=== PATIENT | male | born 1940 | race Caucasian/White ===

== ENCOUNTER 2017-06-19 16:54 | Inpatient (IN) | payer MEDICARE ==
[~2017-06-19] VITALS: Ht 182.9 cm; Wt 76.8 kg
[2017-06-19 17:22] LABS: GLUCOSE,POINT OF CARE 74 MG/DL (70-110)
[2017-06-19] MEDS ORDERED: ESCI20TA PO (17:29)
[2017-06-19] MEDS ORDERED: ATOR10TA84 PO (17:29)
[2017-06-19] MEDS ORDERED: LEVO75 PO (17:29)
[2017-06-19] MEDS ORDERED: LISI-660 PO (17:29)
[2017-06-19 19:49] LABS: BASOPHILS % (AUTO) 0.6 % (0.0-2.0); EOSINOPHILS % (AUTO) 3.8 % (1.0-6.0); HEMATOCRIT 37.1 % (41-53); HEMOGLOBIN 12.8 g/dL (13.5-17.5); LYMPHOCYTES # (AUTO) 1.3 K/uL (1.0-4.8); LYMPHOCYTES % (AUTO) 15.8 % (22.0-44.0); MEAN CORPUSCULAR HEMOGLOBIN 30.3 pg (26.0-34.0); MEAN CORPUSCULAR HGB CONC 34.4 G/dL (31.0-37.0); MEAN CORPUSCULAR VOLUME 88 fL (80-100); MONOCYTES # (AUTO) 0.7 K/uL (0.1-1.0); MONOCYTES % (AUTO) 8.2 % (2.0-9.0); NEUTROPHILS % (AUTO) 71.6 % (40.0-70.0); PLATELET COUNT (AUTO) 340 K/uL (150-450); RED BLOOD CELL COUNT(AUTO) 4.22 MIL/uL (4.50-5.90); WHITE BLOOD COUNT (AUTO) 8.3 K/uL (4.5-11.0)
[2017-06-19 19:54] LABS: CALCIUM, TOTAL 9.4 mg/dL (8.8-10.5); CREATININE 1.4 mg/dL (0.60-1.30); POTASSIUM 4.3 mmol/L (3.5-5.1)
[2017-06-19 19:59] LABS: ALBUMIN 3.2 g/dL (3.4-5.0); BILIRUBIN,TOTAL 0.5 mg/dL (0.1-1.0); TOTAL PROTEIN, SERUM 7.5 g/dL (6.4-8.2)
[2017-06-19 20:43] LABS: LACTIC ACID 1.5 mmol/L (0.4-2.0)
[2017-06-19] MEDS ORDERED: ACETAMINOPHEN 325 MG TABLET PO PRN ×2 (21:00→21:30)
[2017-06-19] MEDS ORDERED: VANCOMYCIN HCL 1 GM/D5% WATER 200 ML IV ONE (21:00)
[2017-06-19] MEDS ORDERED: PIPERACILLIN/TAZO 3.375 GM/D5W 50 ML IV ONE (21:00)
[2017-06-19] MEDS ORDERED: ONDANSETRON HCL 4 MG/2 ML VIAL IVP PRN ×2 (21:00→21:30)
[2017-06-19] MEDS ORDERED: DEXTROSE 50%-WATER 25 GM/50 ML SYRINGE IVP PRN ×2 (21:00→21:30)
[2017-06-19] MEDS ORDERED: INSULIN REGULAR, HUMAN 100 UNITS/ML SQ PRN (21:00)
[2017-06-19] MEDS ORDERED: 0.9% SODIUM CHLORIDE 10 ML SYRINGE IVP PRN (21:00)
[2017-06-19] MEDS ORDERED: SODIUM CHLORIDE 0.9% 250 ML IV ONE (21:25)
[2017-06-19] MEDS ORDERED: ALBUTEROL SULFATE 2.5 MG/0.5 ML NEB SOLUTION NEB PRN (21:30)
[2017-06-19] MEDS ORDERED: MORPHINE SULFATE 2 MG/ML SYRINGE IVP PRN (21:30)
[2017-06-19] MEDS ORDERED: OxyCODONE HCL/ACETAMINOPHEN 5-325 MG TABLET PO PRN (21:30)
[2017-06-19] MEDS ORDERED: ZOLPIDEM TARTRATE 5 MG TABLET PO PRN (21:30)
[2017-06-19] MEDS ORDERED: MAGNESIUM HYDROXIDE SUSPENSION 30 ML UDCUP PO PRN (21:30)
[2017-06-19] MEDS ORDERED: BISACODYL 10 MG RECTAL RECTAL SUPPOSITORY PR PRN (21:30)
[2017-06-19] MEDS ORDERED: IPRATROPIUM BROMIDE 0.5 MG/2.5 ML NEB SOLUTION NEB PRN (21:30)
[2017-06-19 22:00] VITALS: BP 108/62
[2017-06-19] MEDS ORDERED: INSULIN ASPART 100 UNITS/ML SQ ONE (22:15)
[2017-06-19] MEDS: INSULIN GLARGINE,HUM.REC.ANLOG 100 UNITS/ML SQ SCH (22:51)
[2017-06-19 22:57] LABS: GLUCOSE,POINT OF CARE 141 MG/DL (70-110)
[2017-06-20] MEDS ORDERED: VANCOMYCIN HCL 500 MG in DEXTROSE 5%-WATER 100 ML IV ONE (01:00)
[2017-06-20 01:24] LABS: APPEARANCE,URINE CLEAR (CLEAR); GLUCOSE, URINE (UA) NEGATIVE (NEGATIVE); KETONES,URINE TRACE mg/dL (NEGATIVE); LEUKOCYTE ESTERASE ,URINE NEGATIVE (NEGATIVE); OCCULT BLOOD,URINE NEGATIVE (NEGATIVE); PROTEIN,URINE POS 1+ (NEGATIVE)
[2017-06-20 02:15] LABS: CALCIUM OXALATE CRYSTALS,UR Rare /LPF (None Seen); HYALINE CASTS, URINE 0-2 /LPF (None Seen); RBC,URINE 0-2 /HPF (0-2); WBC,URINE 0-2 /HPF (0-5)
[2017-06-20 04:08] VITALS: BP 99/54
[2017-06-20] MEDS: LEVOTHYROXINE SODIUM 75 MCG TABLET PO SCH (06:20)
[2017-06-20] MEDS: INSULIN ASPART 100 UNITS/ML SQ PRN ×3 (06:26→20:50)
[2017-06-20 06:36] LABS: EOSINOPHILS % (AUTO) 0.6 % (1.0-6.0); HEMATOCRIT 33.9 % (41-53); HEMOGLOBIN 11.8 g/dL (13.5-17.5); LYMPHOCYTES # (AUTO) 0.2 K/uL (1.0-4.8); LYMPHOCYTES % (AUTO) 1.8 % (22.0-44.0); MEAN CORPUSCULAR HEMOGLOBIN 30.6 pg (26.0-34.0); MEAN CORPUSCULAR HGB CONC 34.7 G/dL (31.0-37.0); MEAN CORPUSCULAR VOLUME 88 fL (80-100); MONOCYTES # (AUTO) 0.3 K/uL (0.1-1.0); MONOCYTES % (AUTO) 2.7 % (2.0-9.0); NEUTROPHILS # (AUTO) 9.3 K/uL (1.8-7.7); PLATELET COUNT (AUTO) 284 K/uL (150-450); RED BLOOD CELL COUNT(AUTO) 3.84 MIL/uL (4.50-5.90); RED CELL DISTRIBUTION WIDTH 14.2 % (11.5-14.5); WHITE BLOOD COUNT (AUTO) 9.8 K/uL (4.5-11.0)
[2017-06-20 06:44] LABS: GLUCOSE,POINT OF CARE 320 MG/DL (70-110)
[2017-06-20 06:59] LABS: NEUTROPHILS % (AUTO) 94.9 % (40.0-70.0)
[2017-06-20] MEDS ORDERED: VANCOMYCIN HCL 1 GM/D5% WATER 200 ML IV SCH (07:00)
[2017-06-20 07:28] LABS: HEMOGLOBIN A1C 7.2 % (4.5-6.2)
[2017-06-20 07:48] LABS: ALBUMIN 2.9 g/dL (3.4-5.0); CREATININE 1.63 mg/dL (0.60-1.30); MAGNESIUM 1.9 mg/dL (1.80-2.40); PHOSPHORUS 2.7 mg/dL (2.5-4.9); POTASSIUM 4.3 mmol/L (3.5-5.1)
[2017-06-20 08:00] VITALS: BP 102/60
[2017-06-20 09:03] LABS: RBC MORPHOLOGY COMMENT NORMAL RBC MORPH
[2017-06-20] MEDS ORDERED: SODIUM CHLORIDE 0.9% 1,000 ML IV ONE ×2 (09:30→13:30)
[2017-06-20] MEDS: ATORVASTATIN CALCIUM 10 MG TABLET PO SCH (09:51)
[2017-06-20] MEDS: VANCOMYCIN HCL 1.25 GM in DEXTROSE 5%-WATER 250 ML IV SCH (09:51)
[2017-06-20] MEDS: ESCITALOPRAM OXALATE 20 MG TABLET PO SCH (09:51)
[2017-06-20] MEDS: PANTOPRAZOLE SODIUM 40 MG DR TABLET PO SCH (09:51)
[2017-06-20] MEDS: HEPARIN SODIUM,PORCINE 5,000 UNITS/ML VIAL SQ SCH ×2 (09:52→20:46)
[2017-06-20] MEDS: LISINOPRIL 5 MG TABLET PO SCH ×2 (09:52→20:37)
[2017-06-20] MEDS: INSULIN ASPART 100 UNITS/ML SQ SCH (09:55)
[2017-06-20 11:42] LABS: EOSINOPHILS % (AUTO) 2.5 % (1.0-6.0); HEMATOCRIT 32.9 % (41-53); HEMOGLOBIN 11.6 g/dL (13.5-17.5); LYMPHOCYTES # (AUTO) 0.2 K/uL (1.0-4.8); MEAN CORPUSCULAR HEMOGLOBIN 30.8 pg (26.0-34.0); MEAN CORPUSCULAR HGB CONC 35.1 G/dL (31.0-37.0); MEAN CORPUSCULAR VOLUME 88 fL (80-100); MONOCYTES # (AUTO) 0.2 K/uL (0.1-1.0); MONOCYTES % (AUTO) 1.7 % (2.0-9.0); NEUTROPHILS # (AUTO) 8.5 K/uL (1.8-7.7); PLATELET COUNT (AUTO) 289 K/uL (150-450); RED BLOOD CELL COUNT(AUTO) 3.75 MIL/uL (4.50-5.90)
[2017-06-20 11:53] LABS: NEUTROPHILS % (AUTO) 93.8 % (40.0-70.0)
[2017-06-20 11:54] LABS: RBC MORPHOLOGY COMMENT NORMAL RBC MORPH
[2017-06-20 12:00] VITALS: BP 104/62
[2017-06-20 12:56] LABS: ERYTHROCYTE SEDIMENTATION RATE 85 MM/HR (0-15)
[2017-06-20 15:23] LABS: GLUCOSE,POINT OF CARE 268 MG/DL (70-110)
[2017-06-20 16:00] VITALS: BP 105/60
[2017-06-20 19:26] VITALS: BP 80/39
[2017-06-20 20:40] LABS: GLUCOSE,POINT OF CARE 97 MG/DL (70-110)
[2017-06-20] MEDS: INSULIN GLARGINE,HUM.REC.ANLOG 100 UNITS/ML SQ SCH (20:46)
[2017-06-20 23:34] VITALS: BP 91/46
[2017-06-21 04:00] VITALS: BP 93/46
[2017-06-21] MEDS: LEVOTHYROXINE SODIUM 75 MCG TABLET PO SCH ×2 (06:30→08:47)
[2017-06-21 07:02] LABS: CALCIUM, TOTAL 7.9 mg/dL (8.8-10.5); CREATININE 1.43 mg/dL (0.60-1.30)
[2017-06-21 07:04] LABS: BASOPHILS % (AUTO) 0.8 % (0.0-2.0); HEMATOCRIT 29.5 % (41-53); HEMOGLOBIN 10.3 g/dL (13.5-17.5); LYMPHOCYTES # (AUTO) 0.8 K/uL (1.0-4.8); LYMPHOCYTES % (AUTO) 13.4 % (22.0-44.0); MEAN CORPUSCULAR HEMOGLOBIN 30.9 pg (26.0-34.0); MEAN CORPUSCULAR HGB CONC 34.9 G/dL (31.0-37.0); MEAN CORPUSCULAR VOLUME 88 fL (80-100); MONOCYTES # (AUTO) 0.3 K/uL (0.1-1.0); MONOCYTES % (AUTO) 5.6 % (2.0-9.0); NEUTROPHILS % (AUTO) 70.2 % (40.0-70.0); PLATELET COUNT (AUTO) 225 K/uL (150-450); RED BLOOD CELL COUNT(AUTO) 3.34 MIL/uL (4.50-5.90); RED CELL DISTRIBUTION WIDTH 13.8 % (11.5-14.5); WHITE BLOOD COUNT (AUTO) 5.7 K/uL (4.5-11.0)
[2017-06-21 07:13] LABS: POTASSIUM 3.8 mmol/L (3.5-5.1)
[2017-06-21 07:50] VITALS: BP 95/46
[2017-06-21 08:25] LABS: ERYTHROCYTE SEDIMENTATION RATE 80 MM/HR (0-15)
[2017-06-21] MEDS: LISINOPRIL 5 MG TABLET PO SCH ×2 (09:00→20:55)
[2017-06-21] MEDS: PANTOPRAZOLE SODIUM 40 MG DR TABLET PO SCH (09:03)
[2017-06-21] MEDS: HEPARIN SODIUM,PORCINE 5,000 UNITS/ML VIAL SQ SCH ×2 (09:03→20:53)
[2017-06-21] MEDS: ESCITALOPRAM OXALATE 20 MG TABLET PO SCH (09:03)
[2017-06-21] MEDS: ATORVASTATIN CALCIUM 10 MG TABLET PO SCH (09:03)
[2017-06-21] MEDS: VANCOMYCIN HCL 1.25 GM in DEXTROSE 5%-WATER 250 ML IV SCH (09:04)
[2017-06-21] MEDS: INSULIN ASPART 100 UNITS/ML SQ SCH (09:17)
[2017-06-21 11:43] VITALS: BP 93/46
[2017-06-21 12:00] LABS: GLUCOSE,POINT OF CARE 132 MG/DL (70-110)
[2017-06-21 12:00] LABS: GLUCOSE,POINT OF CARE 159 MG/DL (70-110)
[2017-06-21 12:00] LABS: GLUCOSE COMMENT 1 Received Meds; GLUCOSE,POINT OF CARE 230 MG/DL (70-110)
[2017-06-21 12:00] LABS: GLUCOSE,POINT OF CARE 131 MG/DL (70-110)
[2017-06-21 13:47] LABS: PROTHROMBIN TIME 10.7 SEC (9.4-11.6)
[2017-06-21] MEDS ORDERED: ESCITALOPRAM OXALATE 10 MG TABLET PO SCH (14:15)
[2017-06-21] MEDS ORDERED: GuaiFENesin/D-METHORPHAN [SUGAR-FREE] 200-20MG/10 ML SYRUP UDCUP PO PRN (14:15)
[2017-06-21 15:32] VITALS: BP 101/49
[2017-06-21] MEDS ORDERED: HEPARIN SODIUM 1000 UNITS/NS 500 ML ONE (15:55)
[2017-06-21] MEDS: INSULIN ASPART 100 UNITS/ML SQ PRN (18:52)
[2017-06-21 19:57] VITALS: BP 98/45
[2017-06-21] MEDS: INSULIN GLARGINE,HUM.REC.ANLOG 100 UNITS/ML SQ SCH (20:56)
[2017-06-21 23:44] VITALS: BP 100/51
[2017-06-22 04:38] LABS: GLUCOSE COMMENT 1 Received Meds; GLUCOSE,POINT OF CARE 165 MG/DL (70-110)
[2017-06-22 04:38] LABS: GLUCOSE,POINT OF CARE 203 MG/DL (70-110)
[2017-06-22 04:45] VITALS: BP 111/57
[2017-06-22] MEDS: LEVOTHYROXINE SODIUM 75 MCG TABLET PO SCH (06:08)
[2017-06-22] MEDS: INSULIN ASPART 100 UNITS/ML SQ PRN ×4 (06:14→21:11)
[2017-06-22 07:40] VITALS: BP 106/52
[2017-06-22 08:15] LABS: ANION GAP 9 mmol/L (8-16); CALCIUM, TOTAL 8.1 mg/dL (8.8-10.5); CARBON DIOXIDE 23 mmol/L (22-29); CHLORIDE 107 mmol/L (98-107); CREATININE 1.16 mg/dL (0.60-1.30); GLOMERULAR FILTR. RATE CALC > 60 mL/min (>60); POTASSIUM 4.2 mmol/L (3.5-5.1); SODIUM SERUM 139 mmol/L (136-145); UREA NITROGEN, BLOOD 22 mg/dL (7-18)
[2017-06-22] MEDS: ATORVASTATIN CALCIUM 10 MG TABLET PO SCH (08:18)
[2017-06-22] MEDS: HEPARIN SODIUM,PORCINE 5,000 UNITS/ML VIAL SQ SCH ×3 (08:19→21:08)
[2017-06-22] MEDS: PANTOPRAZOLE SODIUM 40 MG DR TABLET PO SCH (08:19)
[2017-06-22] MEDS: LISINOPRIL 5 MG TABLET PO SCH ×3 (08:19→21:00)
[2017-06-22] MEDS: ESCITALOPRAM OXALATE 20 MG TABLET PO SCH (08:19)
[2017-06-22] MEDS ORDERED: SODIUM CHLORIDE 0.9% 250 ML IV ONE (08:26)
[2017-06-22] MEDS ORDERED: VITAMINS A & D 60 GM OINTMENT TP SCH (09:00)
[2017-06-22] MEDS: INSULIN ASPART 100 UNITS/ML SQ SCH (09:11)
[2017-06-22 11:21] LABS: GLUCOSE,POINT OF CARE 203 MG/DL (70-110)
[2017-06-22 15:12] LABS: GLUCOSE,POINT OF CARE 92 MG/DL (70-110)
[2017-06-22 16:02] VITALS: BP 106/55
[2017-06-22 20:08] VITALS: BP 102/53
[2017-06-22] MEDS: DOCUSATE SODIUM 100 MG CAPSULE PO SCH (21:08)
[2017-06-22] MEDS: INSULIN GLARGINE,HUM.REC.ANLOG 100 UNITS/ML SQ SCH (21:10)
[2017-06-22 22:03] LABS: GLUCOSE,POINT OF CARE 122 MG/DL (70-110)
[2017-06-22 22:03] LABS: GLUCOSE COMMENT 1 Juice/Food/D50 Given; GLUCOSE,POINT OF CARE 246 MG/DL (70-110)
[2017-06-22 23:26] VITALS: BP 114/58
[2017-06-23 05:23] VITALS: BP 118/59
[2017-06-23] MEDS: INSULIN ASPART 100 UNITS/ML SQ PRN (06:08)
[2017-06-23] MEDS: LEVOTHYROXINE SODIUM 75 MCG TABLET PO SCH (06:23)
[2017-06-23 06:28] LABS: GLUCOSE,POINT OF CARE 189 MG/DL (70-110)
[2017-06-23 06:58] LABS: ANION GAP 9 mmol/L (8-16); CALCIUM, TOTAL 8.3 mg/dL (8.8-10.5); CARBON DIOXIDE 24 mmol/L (22-29); CHLORIDE 106 mmol/L (98-107); CREATININE 1.15 mg/dL (0.60-1.30); GLOMERULAR FILTR. RATE CALC > 60 mL/min (>60); POTASSIUM 4.1 mmol/L (3.5-5.1); SODIUM SERUM 139 mmol/L (136-145); UREA NITROGEN, BLOOD 17 mg/dL (7-18)
[2017-06-23] MEDS ORDERED: VANCOMYCIN HCL 1.25 GM in DEXTROSE 5%-WATER 250 ML IV SCH (08:00)
[2017-06-23 08:09] VITALS: BP 104/51
[2017-06-23] MEDS: PANTOPRAZOLE SODIUM 40 MG DR TABLET PO SCH (08:38)
[2017-06-23] MEDS: ATORVASTATIN CALCIUM 10 MG TABLET PO SCH (08:38)
[2017-06-23] MEDS: HEPARIN SODIUM,PORCINE 5,000 UNITS/ML VIAL SQ SCH (08:38)
[2017-06-23] MEDS: DOCUSATE SODIUM 100 MG CAPSULE PO SCH (08:38)
[2017-06-23] MEDS: LISINOPRIL 5 MG TABLET PO SCH (08:38)
[2017-06-23] MEDS: ESCITALOPRAM OXALATE 20 MG TABLET PO SCH (08:38)
[2017-06-23] MEDS: INSULIN ASPART 100 UNITS/ML SQ SCH (08:48)
[2017-06-23] MEDS ORDERED: TAMSULOSIN HCL 0.4 MG CAPSULE PO SCH (09:00)
[2017-06-23 11:15] VITALS: BP 121/62
[2017-06-23 14:52] LABS: GLUCOSE,POINT OF CARE 76 MG/DL (70-110)
== END 2017-06-23 16:20 | DRG 638 ==
LOC: EMS 16:57 → 4E 20:38 → 6N 06-21 18:00
PROVIDERS: ADMIT Internal Medicine; ATTEND Internal Medicine
PROC: 02HV33Z Insertion of Infusion Device into Superior Vena Cava, Percutaneous Approach (ICD-10-PCS; principal; 2017-06-22)
PROC: B548ZZA Ultrasonography of Superior Vena Cava, Guidance (ICD-10-PCS; 2017-06-22)
DX: E11.69 Type 2 diabetes mellitus with other specified complication (principal); L03.116 Cellulitis of left lower limb; M86.8X7 Other osteomyelitis, ankle and foot; N17.9 Acute kidney failure, unspecified; E44.0 Moderate protein-calorie malnutrition; E11.51 Type 2 diabetes mellitus with diabetic peripheral angiopathy without gangrene; E11.65 Type 2 diabetes mellitus with hyperglycemia; E03.9 Hypothyroidism, unspecified; I10 Essential (primary) hypertension; B95.61 Methicillin susceptible Staphylococcus aureus infection as the cause of diseases classified elsewhere; E78.00 Pure hypercholesterolemia, unspecified; D63.8 Anemia in other chronic diseases classified elsewhere; F32.9 Major depressive disorder, single episode, unspecified; Z88.1 Allergy status to other antibiotic agents; Z79.899 Other long term (current) drug therapy; Z86.14 Personal history of Methicillin resistant Staphylococcus aureus infection; Z79.4 Long term (current) use of insulin; Z89.412 Acquired absence of left great toe; Z89.511 Acquired absence of right leg below knee; Z89.422 Acquired absence of other left toe(s); Z68.23 Body mass index [BMI] 23.0-23.9, adult
CPT/HCPCS: 36245; 36569; 73718; 76937; 82962; 83036; 83605; 83735; 84100; 85651; 86140; 87040; 87070; 87081; 87205; 97162; 97165; 97530; 99285; J1644; J1815; J2543; J3370; J7030; J7050; J7060